=== PATIENT | male | born 1995 | race Caucasian/White ===

== ENCOUNTER 2020-05-24 13:59 | Emergency (ER) | payer OTHER ==
[2020-05-24 14:14] VITALS: BP 127/82
[2020-05-24 14:47] LABS: RAPID STREP SCREEN Negative (Negative)
--- NOTE | 2020-05-24 14:50 | ED Physician Documentation ---
PD HPI HEENT - Stated complaint Stated Complaint: SORE THROAT - Chief complaint Chief Complaint: Heent - History obtained from History obtained from: Patient - History of Present Illness Timing - onset: How many weeks ago (2) Timing - duration: Weeks (2) Timing - details: Gradual onset, Still present Location: Throat Improves: Medication Worsens: Swalllowing Associated symptoms: No: Fever, Congestion, Rhinorrhea, Trismus, Unable to swallow, Swollen nodes, Facial swelling, Headache, Cough Similar symptoms before: Diagnosis (apthus ulcer) Recently seen: Not recently seen - Additional information Additional information: 24-year-old male reports of pain in the back of his throat and left side and he does have an ulceration there that has been present for about 2 weeks. 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 He is complaining of some popping and clicking in his left ear as well. He has not had fever or cough associated with this. He has been quarantined at his home for the past 2 weeks and does not believe he has any COVID exposure. Review of Systems Constitutional: denies: Fever Eyes: denies: Decreased vision Ears: reports: Ear pain Nose: denies: Rhinorrhea / runny nose, Congestion Throat: reports: Sore throat Cardiac: denies: Chest pain / pressure, Palpitations Respiratory: denies: Dyspnea, Cough GI: denies: Nausea, Vomiting : denies: Dysuria, Frequency PD PAST MEDICAL HISTORY - Present Medications Home Medications: Ambulatory Orders Medication Instructions Recorded Confirmed Azithromycin [Zithromax] 250 mg PO DAILY #6 tablet 05/24/20 - Allergies Allergies/Adverse Reactions: Allergies Allergy/AdvReac Type Severity Reaction Status Date / Time No Known Drug Allergies Allergy Verified 05/24/20 14:14 PD ED PE NORMAL - Vitals Vital signs reviewed: Yes (hypertensive) - General General: Alert and oriented X 3, No acute distress, Well developed/nourished - HEENT HEENT: Atraumatic, PERRL, EOMI, Other (left TM retracted and not inflamed right is clear. Pharynx shows a 1cm triangular apthous ulcer on the left tonsillar pillar with erythematous surrounding base and central exudate. ) - Neck Neck: Supple, no meningeal sign, No bony TTP - Cardiac Cardiac: RRR, No murmur - Respiratory Respiratory: No respiratory distress, Clear bilaterally - Abdomen Abdomen: Soft, Non tender - Back Back: No CVA TTP, No spinal TTP - Derm Derm: Normal color, Warm and dry, No rash - Extremities Extremities: No deformity, No edema, No calf tenderness / cord - Neuro Neuro: Alert and oriented X 3, chief creative officer 2-12 intact, No motor deficit, No sensory deficit, Normal speech Eye Opening: Spontaneous Motor: Obeys Commands Verbal: Oriented GCS Score: 15 - Psych Psych: Normal mood, Normal affect Results - Vitals Vitals: Vital Signs - 24 hr 05/24/20 14:10 Temperature 37 C Heart Rate 83 Respiratory 16 Rate Blood Pressure 127/82 H O2 Saturation 97 Oxygen O2 Source Room air - Labs Labs: Laboratory Tests 05/24/20 14:25 Group A Strep Rapid Negative PD MEDICAL DECISION MAKING - ED course Complexity details: reviewed results, re-evaluated patient, considered differential, d/w patient ED course: 24-year-old male with an aphthous ulcer to his tonsillar pillar the does not appear to be healing over the past 2 weeks. It does appear to be superficially infected. He is given a dose of dexamethasone we will place him on some azithromycin Departure - Departure Disposition: Home, Self Care Clinical Impression: Aphthous ulcer of tonsil Condition: Stable Instructions: ED Poonam Renner Follow-Up: [facility] [Provider Group] Prescriptions: Azithromycin [Zithromax] 250 mg PO DAILY #6 tablet
[2020-05-24] MEDS ORDERED: DEXAMETHASONE 10 MG/ML VIAL PO STA (14:51)
[2020-05-24] MEDS ORDERED: CHERRY SYRUP 10 ML UDC PO ONE (14:51)
== END 2020-05-24 14:57 | disposition home or self-care (01) ==
LOC: ED 13:59
DX: K12.0 Recurrent oral aphthae (principal); J02.9 Acute pharyngitis, unspecified; H92.02 Otalgia, left ear
CPT/HCPCS: 87070; 87430; 99283; 99284; A9270